=== PATIENT | female | born 1965 | race Caucasian/White ===

== ENCOUNTER → 2021-11-28 10:48 | Outpatient (CLI) | payer BC, SELFPAY ==
--- NOTE | 2021-11-28 | DI.MG.S_ITS ---
BILATERAL DIGITAL SCREENING MAMMOGRAM 3D/2D WITH CAD: 11/28/2021 CLINICAL: Routine screening. Comparison is made to exam dated: 04/29/2018 mammogram - outside facility. The tissue of both breasts is heterogeneously dense. This may lower the sensitivity of mammography. Current study was also evaluated with a Computer Aided Detection (CAD) system. No significant masses, calcifications, or other findings are seen in either breast. There has been no significant interval change. IMPRESSION: NEGATIVE There is no mammographic evidence of malignancy. A 1 year screening mammogram is recommended. Based on the Tyrer Cuzick model (a risk assessment model) the patient's lifetime risk is 13.3% and her 10 year risk is 4.9%. According to the ACR, ACS, and NCCN guidelines, an annual breast MRI exam along with mammogram is recommended if the patient's lifetime risk is 20% or greater. This exam was interpreted at Station ID: [id number]. NOTE: For mammograms, a report in lay terms will be sent to the patient. Approximately 15% of breast malignancies will not be visualized mammographically. In the management of a palpable breast mass, a negative mammogram must not discourage biopsy of a clinically suspicious lesion. Electronically Signed By: Brenda nevarez/belinda:11/28/2021 14:07:23 letter sent: Normal Exam ACR BI-RADS Category 1: Negative [id number]
== END ==
PROVIDERS: PCP Internal Medicine; Referring Provider Internal Medicine; Visit Provider Internal Medicine
DX: Z12.31 Encounter for screening mammogram for malignant neoplasm of breast (principal)
CPT/HCPCS: 77063; 77067

== ENCOUNTER → 2022-01-22 15:33 | Outpatient (CLI) | payer BC, SELFPAY ==
[2022-01-22 16:13] LABS: COVID19 -Nasal RAPID Negative (Negative)
== END ==
PROVIDERS: PCP Internal Medicine; Visit Provider Obstetrics & Gynecology
DX: Z01.812 Encounter for preprocedural laboratory examination (principal); Z20.822 Contact with and (suspected) exposure to COVID-19
CPT/HCPCS: 87635

== ENCOUNTER 2022-01-23 09:56 | Day surgery (SDC) | payer BC, SELFPAY ==
[2022-01-15 14:52] VITALS: BMI 26.1
--- NOTE | 2022-01-23 | PATH_ITS ---
[facility] Accession Number: [id number] . 01 Material submitted: . PART A: endocervix - ENDOCERVICAL CURETTINGS PART B: cervix - CONE BIOPSY CUT @ 1200 . 01 Clinical history: . LEEP . 01 Diagnosis: A. Endocervix, Curettings: Scant benign endocervical tissue. No dysplasia or malignancy. . B. Cervix, Cone: Ectocervical mucosa with focal mild atypia, consistent with low-grade squamous intraepithelial lesion (JYOTI-1/mild dysplasia). No high-grade dysplasia or malignancy identified. Resection margins are clear of dysplasia. [facility] 01/26/2022 1057 Local . 01 Electronically signed: . Jolanta Scanlon MD, Pathologist NPI- [id number] . 01 Gross description: . A. Received in formalin labeled with the patient's name and endocervical curettings consists of multiple odell soft tissue fragments admixed with mucoid material aggregating to 3.0 x 0.5 x 0.1 cm. The specimen is filtered into a biopsy bag and submitted entirely in cassette A1. B. Received in formalin labeled with the patient's name and cone biopsy consists of an oriented fragment of cervix with a cut at 12 o'clock, per the requisition, measuring 1.0 cm from 12 to 6 o'clock, 1.9 cm from 3 to 9 o'clock, and is excised to a depth of 1.0 cm. The partial cervical os is slit-like and measures 0.3 cm in length. The endocervical margin is inked orange with the remaining stromal margins inked blue. The ectocervix is odell, smooth and glistening. The specimen is radially sectioned and submitted entirely as follows: . B1: 12 to 3 o'clock. B2: 3 to 6 o'clock. B3: 6 to 9 o'clock. B4: 9 to 12 o'clock. ([id number]) /MRV 01/26/2022 0119 Local . 01 Pathologist provided ICD-10: R87.612, N88.2, N87.0 . 01 CPT . 129549, 943135 Specimen Comment: A courtesy copy of this report has been sent to [phone] Performed at: 01 [facility] [address] [place] [id number] MD Edmundo Barrios MD Phone: [phone]
[2022-01-23 10:28] VITALS: BP 121/63; PULSE 72; RESP 16; TEMP 37.1; O2SAT 100; BMI 25.0
[2022-01-23] MEDS: LACTATED RINGERS 1,000 ML 42 ML IV (10:54)
--- NOTE | 2022-01-23 13:11 | PM.PREOP ---
Pre-operative Note COVID-19 COVID-19 status: Negative Result date/Date tested (Pos, Neg/Pending): 01/22/22 Criteria for continued procedure: Non-surgical alternatives not available or appropriate per current SOC Interval Note History & Physical reviewed/Exam performed by Physician: Yes Changes to H&P: No
--- NOTE | 2022-01-23 13:30 | SUR.OPER ---
Lithotomy on padded OR bed, head on pillow, arms secured on padded arm boards at <90 degrees abduction. Legs secured in padded yellow fins stirrups.
[2022-01-23 13:50] VITALS: BP 110/83; PULSE 81; RESP 14; TEMP 36; O2SAT 98
[2022-01-23 13:55] VITALS: BP 114/78; PULSE 73; RESP 12; O2SAT 98
--- NOTE | 2022-01-23 13:55 | PM.GYNOP.1 ---
Operative Date/Time/Diagnoses Date of procedure: 01/23/22 Time of procedure: 13:10 Pre-op diagnosis: Low grade cervical dysplasia Cervical stenosis Post-op diagnosis: same Procedure & Clinicians Procedure: Procedures Operation Date: 01/23/22 11:00 Actual Procedure Side Surgeon p LEEP Procedure Octavio Conde MD Indications: Meghan is a 56 year old post-menopausal G0 female who presents today for colposcopy after Pap performed 11/03/2021 showed ASCUS with positive high-risk HPV (non 16/18/45).? Patient's history of abnormal Paps and positive HPV dates back into her 20s when she had cryotherapy performed.? Her most recent colposcopy was in 2019 for LGSIL with positive HPV the biopsies failed to demonstrate LGSIL.? Endocervical sampling is not impossible due to cervical stenosis presumably as results of cryotherapy.? Patient's colposcopy 12/16 2021 was inadequate due to cervical stenosis and options reviewed insofar as further evaluation and/or treatment.? Patient understands that the location and nature of her cytologic abnormalities hasn't been defined with certainty for several years (at least since 2019) and although it would seem unlikely she has occult HGSIL/CIS/cervical carcinoma, endocervical sampling is necessary to be certain.? She agrees and as has been recommended in the past, will proceed to LEEP.? She is scheduled for LEEP in the main OR of [facility] on 01/23/2022 and presents today for her scheduled surgery. Surgeon: Octavio Conde Anesthesia Type: General Operative Notes Findings: Merked cervical stenosis. No ectocervical lesions noted. Atrophic vaginal mucosa. Closure Type: not applicable Specimen(s): other (LEEP cone cut at 12:00 p.m.) Estimated blood loss (mL): 20 Blood products transfused: none Procedure in detail: With the patient under satisfactory general anesthesia in the modified dorsal lithotomy position, the perineum vagina and abdomen were prepped and draped for LEEP procedure. Pre-surgical safety time-out was then taken in accordance with [facility] protocols. An insulated LEEP speculum was then placed in the vagina and the cervix visualized. Vinegar solution was placed in the vagina and the upper vagina/cervix carefully inspected for areas of aceto-white epithelium. Abnormalities noted and entry into the cervical os could not be accomplished due to its profound stenosis. Using a 10 x 15 mm loop electrode with 50 w pure cut, a LEEP cone was performed in the usual manner. Following the cone, ECC was performed with a Gianniian box curette and a separate ECC specimen submitted. Electrocautery was then used to render the cone bed completely hemostatic and once complete hemostasis was assured, the speculum was removed from the vagina and the procedure terminated. Patient was then awakened from anesthesia and transferred to the PACU for a period of observation and recovery. Complications: none Post-operative Condition: stable Disposition: PACU Plan for aftercare: Routine postop care with follow-up appointment in 2 weeks.
[2022-01-23 14:00] VITALS: BP 124/85; PULSE 74; RESP 16; O2SAT 98
[2022-01-23 14:05] VITALS: BP 124/85; PULSE 78; RESP 20; O2SAT 99
[2022-01-23 14:06] VITALS: BP 120/55; PULSE 65; RESP 15; O2SAT 100
--- NOTE | 2022-01-23 15:18 | SUR.PHASEII ---
Late entry: 1430: Pt A&Ox4, denies any distress, no bleeding noted, VSS and ready to discharge home. Discharge instructions reviewed with pt with time allowed for questions. IV DC'd intact, pt has all personal belongings and written instructions in hand. Pt left unit stable via w/c with volunteer assist to ER entrance to meet spouse who will transport pt home.
== END 2022-01-23 14:45 | disposition home or self-care (01) ==
PROVIDERS: PCP Internal Medicine; Referring Provider Obstetrics & Gynecology; Visit Provider Obstetrics & Gynecology
PROC: 0UBC7ZZ Excision of Cervix, Via Natural or Artificial Opening (ICD-10-PCS; CPT 57522; principal; 2022-01-23 11:00)
DX: N87.0 Mild cervical dysplasia (principal); N88.2 Stricture and stenosis of cervix uteri; A63.0 Anogenital (venereal) warts
CPT/HCPCS: 57522; J1100; J2405; J2704; J3010

== ENCOUNTER → 2022-04-28 15:09 | Outpatient (CLI) | payer BC, SELFPAY ==
--- NOTE | 2022-04-28 15:12 | DI.RAD.S_ITS ---
PROCEDURE: XR CERVICAL SPINE 2V OR 3V INDICATIONS: NECK PAIN/MASS TECHNIQUE: 3 view(s) of the cervical spine were acquired. COMPARISON: None. FINDINGS: Bones: No fractures or dislocations to the T1 level. The lateral masses of C1 appear intact on the odontoid view. No suspicious bony lesions. Mild C4-C5 and C5-C6 degenerative disc changes. Mild C6-C7 and C7-T1 facet arthropathy. Mild bilateral C4-C5, C5-C6 and C6-C7 uncovertebral hypertrophy. Soft tissues: No prevertebral soft tissue swelling. IMPRESSION: 1. Multilevel degenerative disc disease. 2. Multilevel facet arthropathy. 3. No fracture. No acute osseous lesion. If symptoms and/or clinical suspicion for pathology persists, evaluation with MRI should be considered for further assessment. Dictated by: Amarilis Wilkinson MD, PhD on 04/28/2022 at 16:14 Approved by: Amarilis Wilkinson MD, PhD on 04/28/2022 at 16:15
== END ==
PROVIDERS: PCP Internal Medicine; Referring Provider Internal Medicine; Visit Provider Internal Medicine
DX: M50.321 Other cervical disc degeneration at C4-C5 level (principal); M47.812 Spondylosis without myelopathy or radiculopathy, cervical region; M47.813 Spondylosis without myelopathy or radiculopathy, cervicothoracic region
CPT/HCPCS: 72040

== ENCOUNTER → 2022-05-20 16:38 | Outpatient (CLI) | payer BC, SELFPAY ==
--- NOTE | 2022-05-20 16:41 | DI.US.S_ITS ---
PROCEDURE: US SOFT TISSUE HEAD AND NECK INDICATIONS: NECK PALPABLE LUMP TECHNIQUE: Real-time scanning was performed of the neck region of interest, with image documentation. COMPARISON: None. FINDINGS: In the deep subcutaneous fat, above the superficial muscular fascia, there is a non- encapsulated, heterogeneous, thin, flat mass measuring 4.5 x 2.8 x 0.7 cm. It is oriented parallel to the skin surface. There may be a tract from this mass to the skin surface, but no defect in the skin could be appreciated. Color Doppler imaging demonstrates no vascularity within or around this area. IMPRESSION: 1. Avascular, subcutaneous mass, probably a lipoma, less likely proteinaceous/sebaceous cyst. No suspicious features. Dictated by: Shira Baker M.D. on 05/21/2022 at 8:14 Approved by: Shira Baker M.D. on 05/21/2022 at 8:25
== END ==
PROVIDERS: PCP Internal Medicine; Referring Provider Internal Medicine; Visit Provider Internal Medicine
DX: R22.1 Localized swelling, mass and lump, neck (principal)
CPT/HCPCS: 76536

== ENCOUNTER → 2022-08-11 11:39 | Outpatient (CLI) | payer OTHER, SELFPAY ==
--- NOTE | 2022-08-11 | DI.CT.S_ITS ---
PROCEDURE: CT ABDOMEN PELVIS W CON INDICATIONS: Left lower quadrant pain TECHNIQUE: After the administration of oral and intravenous contrast, axial sections were acquired from the lung bases to the pubic symphysis. Coronal and sagittal reformats were performed. For radiation dose reduction, the following was used: automated exposure control, adjustment of mA and/or kV according to patient size. COMPARISON:None. FINDINGS: Image quality: Excellent. Lung bases: Unremarkable. Heart: No significant findings. ABDOMEN: Liver: Prominent size. There is a 0.7 cm low-density nodule in the left hepatic lobe, most likely a cyst. Gallbladder: Unremarkable. Biliary ducts: Unremarkable. Pancreas: Unremarkable. Spleen: Normal size. There is a 1.2 cm splenule. Adrenal Glands: Unremarkable. Kidneys and Ureters: Normal size and symmetrical enhancement. There are small nonobstructive stones in both kidneys. Stomach and Bowel: There is thickening of gastric cardia. The small bowel loops and colon are unremarkable. There is a moderate amount of stool in colon. There are few colonic diverticula. No diverticulitis. Peritoneum: No abnormal intraperitoneal fluid. No free air. Ventral Wall: No hernia. Abdominal Nodes: No retroperitoneal or mesenteric adenopathy by size criteria. Vessels: Aorta and inferior vena cava are normal in size. PELVIS: Pelvic Organs: There is a 1.3 cm hypodense nodule in the lower uterine segment or cervix. Bladder: Bladder wall is mildly thickened. Pelvic Nodes: No enlarged lymph nodes. Miscellaneous: No inguinal hernias are seen. Bones: Unremarkable. IMPRESSION: 1. Mild bladder wall thickening suggesting cystitis. 2. Small nonobstructive renal calculi bilaterally. 3. Mild diverticulosis. No acute diverticulitis. 4. There is thickening of the gastric cardia. Recommend upper GI series or upper endoscopy for further evaluation. 5. A 1.3 cm hypodense lesion in the lower uterine segment or cervix. This could represent a nabothian cyst. Pelvic ultrasound is suggested for follow-up. Dictated by: Aubrie Teague M.D. on 08/11/2022 at 17:07 Approved by: Aubrie Teague M.D. on 08/12/2022 at 17:19
== END ==
PROVIDERS: PCP Internal Medicine; Referring Provider Internal Medicine; Visit Provider Internal Medicine
DX: R10.32 Left lower quadrant pain (principal); R63.0 Anorexia; R61 Generalized hyperhidrosis; K76.9 Liver disease, unspecified; N20.0 Calculus of kidney; K57.90 Diverticulosis of intestine, part unspecified, without perforation or abscess without bleeding
CPT/HCPCS: 74177; Q9967

== ENCOUNTER → 2022-08-21 14:06 | Outpatient (CLI) | payer OTHER, SELFPAY ==
--- NOTE | 2022-08-21 | DI.US.S_ITS ---
PROCEDURE: US PELVIC COMPLETE INDICATIONS: Uterine mass TECHNIQUE: Real-time scanning was performed of the pelvic organs, with image documentation. Additional endovaginal scanning was necessary due to incomplete visualization of the adnexal and endometrial structures by transabdominal scanning. COMPARISON: [facility], CT, CT ABDOMEN PELVIS W CON, 08/11/2022, 13:08. FINDINGS: Uterus: Uterus is anteverted and normal in size at 4.9 x 2.2 x 2.8 cm. The myometrium is homogeneous. The endometrium measures 6 mm combined thickness. The endometrial cavity is fluid-filled. No suspicious lesion identified within the uterus. There is a prominent cystic structure within the cervix measuring 1.1 x 0.9 x 1.6 cm. This likely represents a prominent nabothian cyst. No internal vascularity noted. Ovaries: The right ovary measures 1.4 x 0.6 x 1.6 cm. Less than 12 follicles were noted. The left ovary was not visualized on this exam. No adnexal masses are seen. Other: No pathologic free abdominal or pelvic fluid. IMPRESSION: Fluid-filled endometrial cavity. Otherwise, unremarkable sonographic evaluation of the uterus. Prominent 1.6 cm cystic structure within the cervix likely representing a nabothian cyst. Normal sonographic appearance of the right ovary. Left ovary was not visualized on this exam. We strive to produce accurate, complete, and clear reports of imaging services. To assist us in improving patient care, this report was composed using standard report templates and voice recognition software. Therefore, it may contain abnormal punctuation, insertions and/or omissions. Occasional wrong-word or sound-alike substitutions may occur. Though we review the report and make efforts to correct it, we do recommend that the report be read carefully in proper context to recognize any text inaccuracies. Dictated by: Juan Copeland M.D. on 08/21/2022 at 16:31 Approved by: Juan Copeland M.D. on 08/21/2022 at 16:37
== END ==
PROVIDERS: PCP Internal Medicine; Referring Provider Internal Medicine; Visit Provider Internal Medicine
DX: N94.89 Other specified conditions associated with female genital organs and menstrual cycle (principal)
CPT/HCPCS: 76817; 76856

== ENCOUNTER 2022-10-02 13:01 | Day surgery (SDC) | payer OTHER, SELFPAY ==
--- NOTE | 2022-10-02 | PATH_ITS ---
[facility] Accession Number: [id number] No. of containers..05 Tissue . 01 Material submitted: . PART A: colon - PYLORIC BIOPSY PART B: gastrointestinal site - GASTRIC POLYP BIOPSY PART C: esophagus, E-G Junction - GASTROESOPHAGEAL JUNCTION POLYP BIOPSY PART D: esophagus - DISTAL ESOPHAGUS POLYP BIOPSY PART E: splenic flexure - POLYP SPLENIC FLEXURE BIOPSY . 01 Diagnosis: A. Stomach, Pylorus, Biopsy: Gastric antral mucosa with mild chronic inflammation. Negative for Helicobacter organisms by immunohistochemistry. Negative for intestinal metaplasia. Negative for dysplasia or malignancy. . B. Gastric Polyp, Biopsy: Consistent with early fundic gland polyp. No evidence of Helicobacter organisms on H/E stain. Negative for intestinal metaplasia. Negative for dysplasia and malignancy. . C. Gastroesophageal Junction, Biopsy: Squamous mucosa with no diagnostic abnormality. No glandular mucosa present for evaluation. Negative for dysplasia or malignancy. . D. Distal Esophagus, Biopsy: Squamous epithelium with no diagnostic abnormality. Intraepithelial eosinophils are not increased. Negative for dysplasia and malignancy. . E. Splenic Flexure Polyp, Biopsy: Tubular adenoma. [facility] 10/09/2022 1511 Local . 01 Electronically signed: . Joe Felix MD, PhD, Pathologist NPI- [id number] . 01 Gross description: . Part A: PYLORIC BIOPSY: Received in formalin are 2 fragment(s) of odell, soft tissue measuring 0.3 x 0.2 x 0.1 cm to 0.2 x 0.2 x 0.1 cm submitted entirely in 1 cassette(s) Part B: GASTRIC POLYP BIOPSY: Received in formalin is 1 fragment(s) of odell, soft tissue measuring 0.2 x 0.2 x 0.2 cm submitted entirely in 1 cassette(s) Part C: GASTROESOPHAGEAL JUNCTION POLYP BIOPSY: Received in formalin are 2 fragment(s) of odell, soft tissue measuring 0.3 x 0.3 x 0.1 cm to 0.2 x 0.2 x 0.1 cm submitted entirely in 1 cassette(s) Part D: DISTAL ESOPHAGUS POLYP BIOPSY: Received in formalin are 2 fragment(s) of odell, soft tissue measuring 0.2 x 0.2 x 0.1 cm to 0.1 x 0.1 x 0.1 cm submitted entirely in 1 cassette(s) Part E: POLYP SPLENIC FLEXURE BIOPSY: Received in formalin is 1 fragment(s) of odell, soft tissue measuring 0.5 x 0.4 x 0.3 cm submitted entirely in 1 cassette(s) /[facility] 10/06/2022 1543 Local . 01 Microscopic: . A. An immunohistochemical stain was performed to evaluate for Helicobacter organisms and is negative. The control stain showed appropriate reactivity. . * This test was developed and its performance characteristics determined by [employer] (Former[employer]). It has not been cleared or approved by the U.S. Food and Drug Administration. The FDA has determined that such clearance or approval is not necessary. This test is used for clinical purposes. It should not be regarded as investigational or for research. . 01 Pathologist provided ICD-10: K29.70, K31.7, K21.9, D12.3 . 01 CPT . 172290, 585465, 660636, 753961, 718807, V49919 Specimen Comment: A courtesy copy of this report has been sent to [facility] Performed at: 01 [facility] [address] [place] [address] [address], [place], [place] [id number] MD Edmundo Barrios MD Phone: [phone]
--- NOTE | 2022-10-02 13:43 | P.HP_ITS ---
History of Present Illness History of Present Illness Date Patient Seen: 10/02/22 Chief complaint: EGD/Colonoscopy Narrative: Ms. Guajardo states understands that she had a CT scan that showed some thickening of her stomach she was referred to my office and seen on 08/25 2 discuss an EGD.? We discussed risks benefits and alternatives and she did want to proceed. She denies any upper GI symptoms.? Denies reflux or pain in the epigastric region.? Denies Swallowing problems.? No family history of colon cancer or any type of GI cancer stomach included.? Mother did have breast cancer.? She had the CT scan because she was having a low left lower quadrant pain over the course of the last 6 weeks or so and she thought maybe she had some diverticulitis.? She has had a colonoscopy in the past it was about 5 years ago and done in [place]. She was diagnosed with some type of ?colitis? and advised to follow up in 5 years she did have some bleeding per rectum at that time and was prescribed some antibiotics.? She moved to the area about 2 years ago.? She is not had any similar ?colitis type of symptoms but is having this left lower quadrant pain. In the past few weeks that pain has eased up and may be attributable to fiber supplementation but she is not really sure. She is continuing to take the fiber supplement. [facility] Medical History Alopecia Anxiety History of kidney stones Hot flashes Skin cancer Surgical History H/O lithotripsy (~2014) History of eye surgery Social History household members: significant other Smoking Status: Never smoker alcohol intake: current Meds Home Medications and Allergies Home Medications Medication Instructions Recorded Confirmed Type gabapentin 100 mg capsule 100 mg PO BID 12/16/21 10/02/22 History trazodone 50 mg tablet 50 mg PO BEDTIME PRN Sleep 12/16/21 10/02/22 History sertraline 50 mg tablet 50 mg PO DAILY 08/25/22 10/02/22 History Allergies Allergy/AdvReac Type Severity Reaction Status Date / Time hydrocodone [From Vicodin] AdvReac Mild Vomiting Verified 05/05/23 13:53 Sulfa (Sulfonamide AdvReac Mild Verified 10/02/22 13:53 Antibiotics) Exam Narrative Exam Narrative: Exam Const General: cooperative, healthy appearing and comfortable Nutritional Appearance: thin Orientation: alert, awake and oriented x3 HENMT Head: normal to inspection Eyes General: appearance normal, both eyes and all related structures Resp Effort & Inspection: normal respiratory effort and able to speak in complete sentences GI Palpation: soft and non tender Skin General: no rashes or lesions noted Neuro Gait: normal gait Extrem General: normal to inspection Assessment & Plan Assessment and plan (1) Neoplasm of cardia of stomach: Problem details: Possible incidental finding on CT. Not confirmed Status: Ruled-out (2) History of colitis: Status: Acute (3) Left lower quadrant pain: Status: Acute Assessment & Plan narrative: I discussed the risks benefits and alternatives of an EGD.? She understands these including but not limited to perforation of the esophagus or damage to the stomach.? Lack of diagnostic findings or missed diagnosis.? She would like to proceed with an EGD and schedule this.? She also had an ultrasound that did not show the left ovary and so a cyst or some ovarian etiology on the left side maybe contributing to her left lower quadrant pain but additionally I did note on her CT scan that it appears there could be evidence of some diverticula even though they are not inflamed.? I did recommend that she increase her fiber intake to try to ameliorate any diverticular/colon? Etiology for this pain.? Sometimes intermittent constipation and overflow can cause pain like this with the occasional diarrhea constipation that she did describe.? Overall fiber is a very healthy thing to take as a supplement and I think she should definitely benefit from it. She has reflected and because of the colitis she was advised to have colonoscopy in 5 years and it is time for this as well as the current symptoms of pain and constipation are indications for a colonoscopy which she has decided to proceed with. I discussed the risks benefits and alternatives including but not limited to perforation of the colon and an incomplete exam she fully understands these risks and would like to proceed.
[2022-10-02 13:53] VITALS: BP 134/91; PULSE 75; RESP 19; TEMP 36.5; O2SAT 100; BMI 23.3
[2022-10-02] MEDS: LACTATED RINGERS 1,000 ML 42 ML IV (14:01)
[2022-10-02 15:53] VITALS: BP 97/62; PULSE 64; RESP 16; TEMP 36.2; O2SAT 100
[2022-10-02 15:58] VITALS: BP 105/70; PULSE 64; RESP 14; O2SAT 100
[2022-10-02 16:05] VITALS: BP 113/75; PULSE 72; RESP 12; O2SAT 100
[2022-10-02 16:08] VITALS: BP 114/78; PULSE 63; RESP 12; TEMP 36.2; O2SAT 99
--- NOTE | 2022-10-02 18:38 | PM.OP.EC ---
Operative Date/Time/Diagnoses Date of procedure: 10/02/22 Pre-op diagnosis: Esophageal thickening seen on CT. Colon cancer screening as well as left lower quadrant pain, history of colitis and history of bleeding per rectum Procedure & Clinicians Study performed: EGD and colonoscopy, with biopsies Same procedure as scheduled: Yes Indications: See H&P Surgeon: Susie Price Procedure Notes Procedure in detail: Patient was taken to the endoscopy suite and was supine. A time-out was performed. And conscious sedation was induced with the help of an anesthesiologist. A bite block was placed. The EGD scope was introduced into the mouth and advanced easily into the esophagus. The esophagus appeared normal and the scope was advanced into the stomach. There was some irritation of the stomach and some small polyps on the gastric wall. The scope was advanced to the antrum and through the pylorus and into the duodenum. The duodenum appeared normal. Photographs were obtained. The scope was withdrawn and pyloric biopsies were obtained. The antrum and pylorus appeared a little bit red and irritated. The scope was then retroflexed to view the GE junction from the gastric side and everything looked normal. A photograph was obtained. Some gastric biopsies of the gastric mucosa and polyps were obtained. The scope was then withdrawn into the esophagus and biopsies of the GE junction were obtained. Additional biopsies were taken in the distal esophagus based on the CT scan findings but the esophagus grossly looked normal. The scope was then pulled out through the mouth and the patient tolerated the procedure well. The patient was repositioned in a left lateral decubitus position. A digital rectal exam was performed. There were no masses or strictures. The colonoscope was introduced into the anal canal and advanced through to the cecum. The bowel prep was good [place] bowel prep score of 2. A photograph was obtained of the appendiceal orifice. The scope was then slowly withdrawn for total of 14 minutes. One small about 8-9 mm polyp was seen in the splenic flexure and snared. It was removed in total. The scope was further withdrawn and otherwise the examination was unremarkable. The scope was retroflexed and a photograph was obtained. Findings: gastritis and polyp Specimen(s): other (1. Pyloric biopsy 2. Gastric polyp biopsy 3. GE junction biopsy 4. Distal esophagus biopsy 5. Splenic flexure polyp) Complications: none Post-procedure Plan for aftercare: Follow up colonoscopy will be between 7 and 10 years based on the pathology results.
== END 2022-10-02 17:07 | disposition home or self-care (01) ==
PROVIDERS: PCP Internal Medicine; Referring Provider Surgery; Visit Provider Surgery
PROC: 0DJ08ZZ Inspection of Upper Intestinal Tract, Via Natural or Artificial Opening Endoscopic (ICD-10-PCS; CPT 43235; principal; 2022-10-02 13:45)
PROC: 0DJD8ZZ Inspection of Lower Intestinal Tract, Via Natural or Artificial Opening Endoscopic (ICD-10-PCS; CPT 45378; 2022-10-02 13:45)
DX: R93.3 Abnormal findings on diagnostic imaging of other parts of digestive tract (principal); Z87.19 Personal history of other diseases of the digestive system; R10.32 Left lower quadrant pain; K29.50 Unspecified chronic gastritis without bleeding; K31.7 Polyp of stomach and duodenum; D12.3 Benign neoplasm of transverse colon
CPT/HCPCS: 45385; 43239; J2250; J2704; J3010

== ENCOUNTER → 2023-02-25 14:51 | Outpatient (CLI) | payer OTHER, SELFPAY ==
--- NOTE | 2023-02-25 | DI.MG.S_ITS ---
BILATERAL DIGITAL SCREENING MAMMOGRAM 3D/2D WITH CAD: 02/25/2023 CLINICAL: Routine screening. Family history of breast cancer. Comparison is made to exams dated: 11/28/2021 mammogram - [facility] and 04/29/2018 mammogram - outside facility. Both breasts are heterogeneously dense, which may obscure small masses (category c / 51-75% glandular tissue). Current study was also evaluated with a Computer Aided Detection (CAD) system. No significant masses, calcifications, or other findings are seen in either breast. There has been no significant interval change. IMPRESSION: NEGATIVE There is no mammographic evidence of malignancy. A 1 year screening mammogram is recommended. Based on the Tyrer Cuzick model (a risk assessment model) the patient's lifetime risk is 13.0% and her 10 year risk is 5.1%. According to the ACR, ACS, and NCCN guidelines, an annual breast MRI exam along with mammogram is recommended if the patient's lifetime risk is 20% or greater. This exam was interpreted at Station ID: [id number]. NOTE: For mammograms, a report in lay terms will be sent to the patient. Approximately 15% of breast malignancies will not be visualized mammographically. In the management of a palpable breast mass, a negative mammogram must not discourage biopsy of a clinically suspicious lesion. Electronically Signed By: Lior ospina/belinda:02/25/2023 16:37:16 letter sent: Normal Exam ACR BI-RADS Category 1: Negative [id number]
== END ==
PROVIDERS: PCP Internal Medicine; Referring Provider Internal Medicine; Visit Provider Internal Medicine
DX: Z12.31 Encounter for screening mammogram for malignant neoplasm of breast (principal); Z80.3 Family history of malignant neoplasm of breast
CPT/HCPCS: 77063; 77067

== ENCOUNTER → 2024-04-06 17:17 | Outpatient (CLI) | payer OTHER, SELFPAY ==
--- NOTE | 2024-04-06 17:18 | DI.MG.S_ITS ---
BILATERAL DIGITAL SCREENING MAMMOGRAM 3D/2D WITH CAD: 04/06/2024 CLINICAL: Routine screening. Family history of breast cancer. Comparison is made to exams dated: 02/25/2023 mammogram, 11/28/2021 mammogram - [facility], and 04/29/2018 mammogram - outside facility. The breasts are heterogeneously dense, which may obscure small masses (category c / 51-75% glandular tissue). Current study was also evaluated with a Computer Aided Detection (CAD) system. No significant masses, calcifications, or other findings are seen in either breast. There has been no significant interval change. IMPRESSION: NEGATIVE There is no mammographic evidence of malignancy. A 1 year screening mammogram is recommended. Based on the Tyrer Cuzick model (a risk assessment model) the patient's lifetime risk is 12.8% and her 10 year risk is 5.2%. According to the ACR, ACS, and NCCN guidelines, an annual breast MRI exam along with mammogram is recommended if the patient's lifetime risk is 20% or greater. This exam was interpreted at Station ID: [id number]. NOTE: For mammograms, a report in lay terms will be sent to the patient. Approximately 15% of breast malignancies will not be visualized mammographically. In the management of a palpable breast mass, a negative mammogram must not discourage biopsy of a clinically suspicious lesion. Electronically Signed By: Juan goodwin/belinda:04/07/2024 23:54:08 letter sent: Normal Exam ACR BI-RADS Category 1: Negative
== END ==
PROVIDERS: PCP Internal Medicine; Referring Provider Internal Medicine; Visit Provider Internal Medicine
DX: Z12.31 Encounter for screening mammogram for malignant neoplasm of breast (principal); Z80.3 Family history of malignant neoplasm of breast; R92.333 Mammographic heterogeneous density, bilateral breasts
CPT/HCPCS: 77063; 77067

== ENCOUNTER 2024-11-09 07:20 | Observation (INO) | payer OTHER, SELFPAY ==
[2024-11-09] VITALS (13 sets, daily range): BP systolic 109–145; BP diastolic 61–97; PULSE 60–93; RESP 16; TEMP 36.1–37.2; O2SAT 92–100; BMI 25.0
--- NOTE | 2024-11-09 | PATH_ITS ---
[facility] Accession Number: [id number] No. of containers..01 Tissue . 01 Material submitted: . appendix - APPENDIX . 01 Diagnosis: APPENDIX, APPENDECTOMY: Acute suppurative appendicitis and acute serositis. Negative for malignancy. [facility] 11/15/2024 1110 Local . 01 Electronically signed: . Sincere Velasquez MD, Pathologist NPI- [id number] . 01 Gross description: . Received in formalin with two identifiers and appendix, is a odell vermiform appendix 6.4 cm in length by 1.0 cm in diameter with odell, roughened serosa with adherent material consistent with exudate. The margin is inked blue. The lumen is patent and averages 0.3 cm in diameter filled with odell presumed purulent material. The villanueva average 0.2 cm thick with no perforations or lesions identified. Chalk Cutter sections to include the margin, entirely bisected distal tip, and cross-section are submitted in cassette A1. ([id number]) /[facility] 11/10/2024 1923 Local . 01 Pathologist provided ICD-10: K35.80 . 01 CPT . 312726 Specimen Comment: A courtesy copy of this report has been sent to [facility] Pathology Performed at: [address] [facility], [place], [place] [id number] MD Edmundo Barrios MD Phone: [phone]
--- NOTE | 2024-11-09 07:54 | EKG_ITS ---
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
--- NOTE | 2024-11-09 07:59 | ED_ITS ---
HPI - Abdominal Pain General Chief Complaint: Abdominal Pain Stated Complaint: Stomach pain Lower right side Time Seen by Provider: 11/09/24 07:59 Source: patient, RN notes reviewed and old records reviewed Mode of arrival: Family Vehicle Limitations: no limitations History of Present Illness HPI narrative: 59-year-old female history of anxiety, colitis, kidney stones, HPV who presents with complaint of right lower quadrant pain. Patient states started at 2:30 a.m. yesterday morning over 24 hours ago. Woke her up from sleep. Patient states bilateral lower abdomen but it was started to localize more to the right lower quadrant. She denies fevers. She was has a little bit chilled here in the emergency department. Denies nausea or vomiting. States it was has a little bit of flank pain on the right. States had diarrhea the 1st night but has not had any since. She denies any black or bloody stools. Denies any dysuria urgency or frequency or hematuria. Has had kidney stones before states this feels differently she was also had colitis in the past which he states also felt differently. States she did have a Pap smear on 09/28/2024 for HPV. States daily medications or gabapentin, sertraline, trazodone and estrogen patch and cream. States had prior hysterectomy min excisions for skin cancer. Patient has a allergic to sulfa and Vicodin makes her vomit. No tobacco, 2 alcoholic drinks daily, no recreational drugs. She sees José Luis Sharma as her PCP. Related Data Home Medications ?Medication ?Instructions ?Recorded ?Confirmed gabapentin 100 mg capsule 100 mg PO BID 12/16/2110/02 trazodone 50 mg tablet 50 mg PO BEDTIME PRN Sleep 0 12/16/21 10/02/22 sertraline 50 mg tablet 50 mg PO DAILY 08/25/22 05/10/20 Allergies Allergy/AdvReac Type Severity Reaction Status Date / Time hydrocodone (From Vicodin) AdvReac Mild Vomiting Verified 10/02/22 13:53 Sulfa (Sulfonamide AdvReac Mild Verified 10/02/22 13:53 Antibiotics) Review of Systems Review of Systems ROS Unobtainable: All systems reviewed & are unremarkable except as noted in HPI and below Patient History Medical History Anxiety Alopecia Hot flashes Skin cancer History of kidney stones Surgical History History of eye surgery H/O lithotripsy (~2014) Social History household members: significant other alcohol intake: current alcohol intake frequency: a few times a week Exam Narrative Exam Narrative: GENERAL: Alert and oriented x three, female in moderate distress. HEENT: Head normocephalic, atraumatic, EOMI, pupils reactive, face symmetric, moist mucous membranes NECK: Supple, full range of motion CARDIOVASCULAR: Regular rate and rhythm without murmurs, rubs or gallops. RESPIRATORY: Breath sounds equal bilaterally, no wheezes rales or rhonchi. ABDOMEN: Soft, patient has a right lower quadrant tenderness. Normoactive bowel sounds all 4 quadrants. No guarding or rebound, rigidity, no mass, no rash or skin changes noted. : No CVA tenderness EXTREMITIES: Normal range of motion, no clubbing or edema. Neurovascularly intact NEUROLOGICAL: Cranial nerves II through XII grossly intact. Moving all extremities SKIN: Warm, dry, no petechiae, no rashes or lesions. Initial Vital Signs Initial Vital Signs: Vital Signs Pulse Rate 93 H 11/09/24 07:36 Respiratory Rate 16 11/09/24 07:36 Blood Pressure 145/97 H 11/09/24 07:36 Pulse Oximetry 97 11/09/24 07:36 Oxygen Delivery Method Room Air 11/09/24 07:36 Course Orders Ordered: ED Orders 11/09/24 07:46 Complete Blood Count AUTO DIFF Stat Comprehensive Metabolic Panel Stat Lipase Stat 11/09/24 07:51 EKG-12 Lead Stat 11/09/24 08:16 CT abdomen pelvis w con Stat Sodium Chloride (Normal Saline 0.9%) 1,000 mls @ 1,000 mls/hr IV BOLUS ONE Stop: 11/09/24 10:26 Last Admin: 11/09/24 09:48 Dose: 1,000 mls/hr Documented By: VALE Cefazolin Sodium/Dextrose (Ancef) 100 mls @ 200 mls/hr IV NOW ONE Stop: 11/09/24 10:34 Ondansetron HCl (Ondansetron 4 Mg/2 Ml Inj) 4 mg IV NOW PRN PRN Reason: Nausea And Vomiting Discontinued Medications Piperacillin Sod/Tazobactam (Sod 4.5 gm/ Sodium Chloride) 100 mls @ 200 mls/hr IV NOW ONE Stop: 11/09/24 09:28 Last Admin: 11/09/24 09:48 Dose: 200 mls/hr Documented By: LM Ketorolac Tromethamine (Ketorolac 30 Mg/Ml Vial) 15 mg IV NOW ONE Stop: 11/09/24 08:17 Last Admin: 11/09/24 08:23 Dose: 15 mg Documented By: LM Ondansetron HCl (Ondansetron 4 Mg Odt) 4 mg PO NOW PRN PRN Reason: Nausea And Vomiting Vital Signs Vital signs: Vital Signs - 8 hr 11/09/24 07:36 11/09/24 07:46 11/09/24 07:46 Temperature Pulse Rate 93 H 78 Respiratory Rate 16 Blood Pressure 145/97 H 143/79 H Pulse Oximetry 97 100 Oxygen Delivery Method Room Air 11/09/24 08:56 Temperature 98.1 F Pulse Rate Respiratory Rate Blood Pressure Pulse Oximetry Oxygen Delivery Method MDM - Abdominal Pain Lab Data 11/09/24 07:46 11/09/24 07:46 Labs: Lab Results 11/09/24 Range/Units 07:46 WBC 8.6 (4.5-11.0) X10^3/uL RBC 4.46 (4.0-5.2) X10^6/uL Hgb 13.5 (12.0-16.0) g/dL Hct 39.9 (36-46) % MCV 89.5 (80-100) fL MCH 30.2 (26-34) PG MCHC 33.7 (30-36) % RDW 14.7 (11.6-14.8) % Plt Count 207 (150-400) X10^3/uL Neut % (Auto) 72.2 (50-75) % Lymph % (Auto) 17.1 L (25-40) % [place] % (Auto) 9.7 (3-14) % Eos % (Auto) 0.6 L (2-4) % Baso % (Auto) 0.4 (0-2) % Neut # (Auto) 6200 (0870-5112) /uL Lymph # (Auto) 1500 (4923-2150) /uL [place] # (Auto) 800 (0-900) /uL Eos # (Auto) 100 (0-450) /uL Baso # (Auto) 0 (0-100) /uL Sodium 136 L (137-145) mmol/L Potassium 4.0 (3.4-5.1) mmol/L Chloride 104 (98-107) mmol/L Carbon Dioxide 24 (22-32) mmol/L BUN 15 (7-17) mg/dL Creatinine 0.75 (0.52-1.04) mg/dL Estimated GFR > 60 (>60) mL/min BUN/Creatinine Ratio 20.0 (6-22) Glucose 114 H (70-99) mg/dL Calcium 9.5 (8.4-10.2) mg/dL Total Bilirubin 1.7 H (0.2-1.3) mg/dL AST 30 (14-36) IU/L ALT 16 (<35) IU/L Alkaline Phosphatase 53 (38-126) U/L Total Protein 7.4 (6.3-8.2) g/dL Albumin 4.6 (3.5-5.0) g/dL Globulin 2.8 (1.7-4.1) g/dL Albumin/Globulin Ratio 1.6 (1.0-2.8) Lipase 140 (23-300) U/L Point of care testing: Urine Dip Bedside Urine Glucose Negative Bedside Urine Bilirubin - Negative Bedside Urine Ketone - Negative Urine Specific [place] 1.010 Bedside Urine Occult Blood - Negative Bedside Urine pH 8.0 Bedside Urine Protein - Negative Bedside Urine Urobilinogen - Negative Bedside Urine Nitrite - Negative Bedside Urine Leukocytes - Negative Esterase ECG Data Attestation: I personally reviewed and interpreted this ECG as follows: Prior ECG tracings: not available for review Interpretation: Sinus rhythm, rate of 77 ND 156 QRS of 74 QTC of 414. No acute ST elevation or depression noted. No priors for comparison. MDM Narrative Medical decision making narrative: Labs white count, hemoglobin and platelets are normal, sodium is 136, electrolytes BUN and creatinine are normal, glucose is 114 bilirubin is 1.7, AST ALT alk-phos and lipase are normal. Point of care urine is negative. EKG shows sinus rhythm no acute change. CT abdomen pelvis shows findings consistent with a acute appendicitis. No signs of perforation. No discrete drainable abscess collection noted at this time. No bowel obstruction no other areas of normal bowel wall thickening. No free fluid or free air. No obstructing renal stones or hydronephrosis. Bilateral nonobstructing stones. Mild diffuse bladder wall thickening, low-grade cystitis can not be excluded. Clinical correlation follow up recommended. Other incidental findings from not significantly changed from prior study. 59-year-old female history of kidney stones and colitis but states feels very different she was reproducible right lower quadrant pain on exam. Labs show a bilirubin of 1.7 but she was nontender in the right upper quadrant, AST ALT and lipase are normal range. CT abdomen pelvis consistent with a appendicitis as it was patient's exam. Possible cystitis on imaging but patient is urine is negative. Patient has not had urinary symptoms. Patient started any IV antibiotics. Spoke with the patient she defers anything additional for pain at this time. Last intake of water was at 5:30 a.m. this morning, states last solids was around 7 or 8:00 a.m. last night. Spoke with Dr. Franco, general surgery. He was in the department and saw the patient shortly thereafter. Accepted with plan for same-day surgery likely discharge home afterwards. Discharge Plan Departure Patient Disposition: Admitted as Observation Clinical Impression: Acute appendicitis Admit Date/Time: 11/09/24 10:00 Admit Provider: Jefe Franco
--- NOTE | 2024-11-09 07:59 | PC.NURSE ---
Pt sitting up on stretcher, RA, A&Ox4, breathing even/equal/unlabored at this time. Pt states pain is to RLQ with radition to the back. Labs and urine collected, pt updated. Call light within reach.
[2024-11-09 08:02] LABS: Add Manual Diff / Slide Review NO; Basophils Absolute Auto 0 /uL (0-100); Basophils Percent Auto 0.4 % (0-2); Eosinophils Absolute Auto 100 /uL (0-450); Eosinophils Percent Auto 0.6 % (2-4); Hematocrit 39.9 % (36-46); Hemoglobin 13.5 g/dL (12.0-16.0); Lymphocytes Absolute Auto 1500 /uL (1100-4500); Lymphocytes Percent Auto 17.1 % (25-40); Mean Corpuscular HGB Conc 33.7 % (30-36); Mean Corpuscular Hemoglobin 30.2 PG (26-34); Mean Corpuscular Volume 89.5 fL (80-100); Monocytes Absolute Auto 800 /uL (0-900); Monocytes Percent Auto 9.7 % (3-14); Neutrophils Absolute Auto 6200 /uL (1500-7000); Neutrophils Percent Auto 72.2 % (50-75); Platelet Count 207 X10^3/uL (150-400); Red Blood Cell Count 4.46 X10^6/uL (4.0-5.2); Red Cell Distribution Width 14.7 % (11.6-14.8); White Blood Cell Count 8.6 X10^3/uL (4.5-11.0)
[2024-11-09 08:14] LABS: Alanine Aminotransferase 16 IU/L (<35); Albumin 4.6 g/dL (3.5-5.0); Albumin Globulin Ratio 1.6 (1.0-2.8); Alkaline Phosphatase 53 U/L (38-126); Aspartate Aminotransferase 30 IU/L (14-36); Bilirubin Total 1.7 mg/dL (0.2-1.3); Blood Urea Nitrogen 15 mg/dL (7-17); Calcium 9.5 mg/dL (8.4-10.2); Carbon Dioxide 24 mmol/L (22-32); Chloride 104 mmol/L (98-107); Estimated Glomerular Filt Rate > 60 mL/min (>60); Globulin 2.8 g/dL (1.7-4.1); Glucose 114 mg/dL (70-99); HEMOLYSIS 24 (0-50); Lipase 140 U/L (23-300); Sodium 136 mmol/L (137-145); Total Protein 7.4 g/dL (6.3-8.2)
--- NOTE | 2024-11-09 08:16 | DI.CT.S_ITS ---
PROCEDURE: CT ABDOMEN PELVIS W CON INDICATIONS: RLQ pain, mild flank x 24 hours, pain w/ palp RLQ TECHNIQUE: After the administration of intravenous contrast, axial sections acquired from the lung bases to the pubic symphysis. Coronal and sagittal reformats were performed. For radiation dose reduction, the following was used: automated exposure control, adjustment of mA and/or kV according to patient size. COMPARISON: [facility], CT, CT ABDOMEN PELVIS W CON, 08/11/2022, 13:08. FINDINGS: Image quality: Diagnostic. Lower Chest: No significant findings. ABDOMEN: Liver: No solid mass. 8 mm hypodensity in left hepatic lobe series 2, image 17. 5 mm hypodensity is also seen in left hepatic lobe series 2, image 14. Gallbladder: No gallbladder wall thickening or radiopaque gallstones. Biliary ducts: No biliary dilation. Pancreas: No ductal dilation. Spleen: Size is within normal limits. Adrenal Glands: No adrenal nodules. Mild left adrenal thickening. Kidneys and Ureters: Bilateral nonobstructing renal stones are seen measures up to 8 x 4 mm in size in midpole left kidney. No hydronephrosis. No solid mass. No complex renal cystic lesion which requires follow up. Stomach and Bowel: There is no bowel obstruction. Appendix is seen in right lower quadrant and is diffusely enlarged . Extensive periappendiceal fat stranding and fluid is seen. Tiny calcification is also noted within appendiceal lumen. No extra luminal air. No discrete drainable abscess collection. No other area of abnormal bowel wall thickening. Peritoneum: No abnormal intraperitoneal fluid. No free air. Ventral Wall: No significant ventral hernia. Abdominal Nodes: No retroperitoneal or mesenteric adenopathy by size criteria. Vessels: Aorta and inferior vena cava are normal in size. PELVIS: Pelvic Organs: Unremarkable. Bladder: Mild diffuse bladder wall thickening is seen. Pelvic Nodes: No enlarged lymph nodes. Miscellaneous: No inguinal hernias are seen. Bones: No aggressive osseous abnormality. IMPRESSION: 1. Finding is consistent with acute appendicitis. No signs of perforation. No discrete drainable abscess collection is noted at this time. 2. No bowel obstruction. No other area of abnormal bowel wall thickening. No free fluid or free air. 3. No obstructing renal stones or hydronephrosis. Bilateral nonobstructing stones. Mild diffuse bladder wall thickening, low-grade cystitis cannot be excluded. Clinical correlation and follow-up is recommended. 4. Other incidental findings as above not significantly changed from prior study. Dictated by: Vinny Winkler M.D. on 11/09/2024 at 9:14 Approved by: Vinny Winkler M.D. on 11/09/2024 at 9:19
[2024-11-09] MEDS: KETOROLAC 30 MG/ML VIAL 15 MG IV (08:23)
[2024-11-09] MEDS: SODIUM CHLORIDE 0.9% 1,000 ML 1000 ML IV (09:48)
[2024-11-09] MEDS: PIPERACILLIN/TAZO 4.5 GM in SODIUM CHLORIDE 0.9% 100 ML IV (09:48)
--- NOTE | 2024-11-09 10:01 | P.CONS_ITS ---
History of Present Illness Consult details Date Patient Seen: 11/09/24 Time Patient Seen: 09:30 Chief complaint: Stomach pain Lower right side Narrative: 59-year-old otherwise healthy female with a history of hysterectomy who presented to the ED with a 1 day history of abdominal pain which localized to her right lower quadrant. She had a mild leukocytosis and CT abdomen pelvis demonstrated an edematous appendix with periappendiceal inflammatory changes consistent with acute appendicitis. She is admitted for definitive management. Meds Home Medications and Allergies Home Medications ?Medication ?Instructions ?Recorded ?Confirmed ?Type gabapentin 100 mg capsule 100 mg PO BID 12/16/2110/02 History trazodone 50 mg tablet 50 mg PO BEDTIME PRN Sleep 0 12/16/21 10/02/22 History sertraline 50 mg tablet 50 mg PO DAILY 08/25/22 0510/20 History Allergies Allergy/AdvReac Type Severity Reaction Status Date / Time hydrocodone (From Vicodin) AdvReac Mild Vomiting Verified 10/02/22 13:53 Sulfa (Sulfonamide AdvReac Mild Verified 10/02/22 13:53 Antibiotics) Review of Systems Review of Systems Narrative: Comprehensive review of systems negative to direct questioning with the exception of the previously mentioned chronic conditions Exam Vital Signs (past 8 hours): - 11/09/24 07:36 11/09/24 07:46 11/09/24 07:46 Temperature Pulse Rate 93 H 78 Respiratory Rate 16 Blood Pressure 145/97 H 143/79 H Pulse Oximetry 97 100 Oxygen Delivery Method Room Air 11/09/24 08:56 Temperature 98.1 F Pulse Rate Respiratory Rate Blood Pressure Pulse Oximetry Oxygen Delivery Method Oxygen Delivery Method Room Air Narrative Exam Narrative: Head is normocephalic and atraumatic. Neck is supple. Back is without CVA or spinous process tenderness. Lungs are clear to auscultation. Chest is symmetric, nontender with normal inspiratory and expiratory excursion. Heart has a regular rate and rhythm with no murmur or gallop. Abdomen is soft with McBurney's tenderness and mild voluntary guarding. There is no Rovsing sign. Bowel sounds are present. Neurological exam is nonfocal. Extremities manifests full range of motion. Objective Labs 11/09/24 07:46 11/09/24 07:46 Labs: Laboratory Results - last 24 hr 11/09/24 07:46 WBC 8.6 RBC 4.46 Hgb 13.5 Hct 39.9 MCV 89.5 MCH 30.2 MCHC 33.7 RDW 14.7 Plt Count 207 Neut % (Auto) 72.2 Lymph % (Auto) 17.1 L [place] % (Auto) 9.7 Eos % (Auto) 0.6 L Baso % (Auto) 0.4 Neut # (Auto) 6200 Lymph # (Auto) 1500 [place] # (Auto) 800 Eos # (Auto) 100 Baso # (Auto) 0 Sodium 136 L Potassium 4.0 Chloride 104 Carbon Dioxide 24 BUN 15 Creatinine 0.75 Estimated GFR > 60 BUN/Creatinine Ratio 20.0 Glucose 114 H Calcium 9.5 Total Bilirubin 1.7 H AST 30 ALT 16 Alkaline Phosphatase 53 Total Protein 7.4 Albumin 4.6 Globulin 2.8 Albumin/Globulin Ratio 1.6 Lipase 140 PFSH Medical History Anxiety Alopecia Hot flashes Skin cancer History of kidney stones Surgical History History of eye surgery H/O lithotripsy (~2014) Social History household members: significant other Tobacco & Substance Use alcohol intake: current Assessment & Plan Assessment and plan (1) Acute appendicitis: Status: Acute Plan I have recommended a laparoscopic attempt at appendectomy. Alternatives, risks and benefits were discussed in detail. Questions were answered. The patient desires to proceed as I have outlined. Plan: Laparoscopic appendectomy. Time-Based Coding :: [TOTAL MINUTES] spent with patient and on the chart (including review of chart, obtaining history, exam, reviewing outside data, placing orders, documenting exam and treatment plan, and counseling patient) on [DATE]. PROFEE Charge Codes Inpatient or Observation consultation: [id number]
[2024-11-09] MEDS: LACTATED RINGERS 1,000 ML 42 ML IV ×3 (10:52→15:23)
[2024-11-09] MEDS: CEFAZOLIN 2 GM/100 ML PREMIX 100 ML IV ×2 (10:53→14:40)
[2024-11-09] MEDS: ONDANSETRON 4 MG/2 ML INJ IV (11:35)
[2024-11-09] MEDS: HYDROMORPHONE 1 MG INJ IV (12:07)
[2024-11-09] MEDS: ACETAMINOPHEN IV 1,000 MG/100 ML VIAL 400 MG IV (14:47)
--- NOTE | 2024-11-09 14:54 | SUR.OPER ---
Supine on padded OR bed, head on pillow, left arm padded and tucked, right arm secured on padded arm boards at <90 degrees abduction, legs uncrossed, safety belt at thigh, tape over blanket over lower legs.
[2024-11-09] MEDS: BUPIVACAINE 0.5% (PF) 30 ML VIAL INJ (15:04)
[2024-11-09] MEDS: LACTATED RINGERS 1,000 ML 125 ML IV (17:12)
--- NOTE | 2024-11-10 10:44 | P.OP_ITS ---
Operative Date/Time/Diagnoses Date of procedure: 11/09/24 Time of procedure: 14:45 Pre-op diagnosis: Acute appendicitis Post-op diagnosis: same Procedure & Clinicians Procedure: Laparoscopic appendectomy Same procedure as scheduled: Yes Indications: Acute appendicitis Surgeon: Jefe Franco Click Yes if Unassisted: Yes Anesthesia Type: General Operative Notes Findings: Acute appendicitis Closure Type: primary Specimen(s): other (Vermiform appendix) Applied: none Estimated Blood Loss (mL): 5 Blood products transfused: none Procedure in detail: Procedure in detail: After obtaining informed consent properly identifying the patient the patient was transported to the operating room and was placed on the table in the the anesthesia was in the lumen was then draped in the usual sterile manner. A time- out. Curvilinear infraumbilical incision of 2 cm length was made with a 15 blade and was carried with electrocautery down onto the fascia. Traction sutures of 0 Vicryl were placed on either side of midline and a peritoneotomy was made under direct vision between the traction sutures. A Henderson cannula of 12 mm diameter was passed and was secured by inflating the balloon at its tip. Pneumoperitoneum was instilled. A 5 mm 30 degree angled laparoscope was passed and posterior surface of the infraumbilical abdominal wall was visualized. 2 additional 5 mm ports were placed under direct laparoscopic vision, 1 in the suprapubic midline and the other midway between the 1st 5 and the umbilicus 2 fingerbreadths left of midline. The appendix was visualized. It was acutely inflamed and moderately edematous. The mesoappendix was taken using LigaSure and this dissection was carried down to the confluence of the appendiceal base and cecal wall. The 5 mm 30 degree angled scope was withdrawn from the Henderson and passed through the left lower quadrant port. An echelon was passed through the Henderson and applied across the confluence of the appendiceal base and cecal wall. It was closed and fired. The echelon was released and withdrawn from the peritoneal cavity. An Endo-Catch was passed through the Henedrson and the specimen was bagged under direct laparoscopic vision. The Henderson balloon was deflated and the Henderson, Endo-Catch and specimen were withdrawn from the supraumbilical port site as a unit. Specimen was passed from the field in the Henderson and 5 mm 30 degree scope were restored to their original positions. The operative field was inspected and hemostasis was perfect. A laparoscopic equipment was withdrawn under direct laparoscopic vision. Pneumoperitoneum was evacuated and ports were withdrawn. The supraumbilical fascial defect was closed with a running 0 Prolene stitch. Field blocks path% Marcaine were instilled into the wounds which were then closed with inverted deep dermal simple interrupted 3-0 Vicryl sutures. They were further secured with Dermabond. The patient tolerated the procedure well and was transported to PACU. Complications: none Post-operative Condition: stable Disposition: PACU Plan for aftercare: Discharge to home
== END 2024-11-09 21:16 | disposition home or self-care (01) ==
LOC: ED 07:59 → AC 10:01
PROVIDERS: Admitting Provider Surgery; Emergency Provider Emergency Medicine; PCP Internal Medicine; Referring Provider Emergency Medicine; Visit Provider Surgery
PROC: 0DTJ4ZZ Resection of Appendix, Percutaneous Endoscopic Approach (ICD-10-PCS; CPT 44970; principal; 2024-11-09 14:00)
DX: K35.80 Unspecified acute appendicitis (principal); Z88.2 Allergy status to sulfonamides; Z88.6 Allergy status to analgesic agent
CPT/HCPCS: 44970; 74177; 80053; 81003; 83690; 85025; 93005; 96361; 96365; 96367; 96375; 99222; 99284; G0378; J0131; J0690; J1100; J1171; J1885; J2405; J2543; J2704; J3010; Q9967

== ENCOUNTER → 2025-05-03 08:30 | Outpatient (CLI) | payer OTHER, SELFPAY ==
[2024-11-09 10:33] VITALS: BMI 25.0
--- NOTE | 2025-05-03 08:31 | DI.CT.S_ITS ---
PROCEDURE: CT ABDOMEN PELVIS W CON INDICATIONS: Lower abdominal/pelvic pain for 4 weeks, prior history of colitis and appendectomy, and hysterectomy. TECHNIQUE: After the administration of intravenous contrast, axial sections acquired from the lung bases to the pubic symphysis. Coronal and sagittal reformats were performed. For radiation dose reduction, the following was used: automated exposure control, adjustment of mA and/or kV according to patient size. COMPARISON: [facility], CT, CT ABDOMEN PELVIS W CON, 11/09/2024, 8:26. [facility], CT, CT ABDOMEN PELVIS W CON, 08/11/2022, 13:08. FINDINGS: Image quality: Diagnostic. Lower Chest: No significant findings. ABDOMEN: Liver: No solid mass. Gallbladder: No radiopaque gallstones or wall thickening. The gallbladder appears relatively contracted. Biliary ducts: No biliary dilation. Pancreas: No ductal dilation. Spleen: Size is within normal limits. Adrenal Glands: No adrenal nodules. Kidneys and Ureters: No hydronephrosis. No solid mass. No complex renal cystic lesion which requires follow up. There is a nonobstructive 5 mm lower 3rd collecting system calculus measuring 1232 Hounsfield units. Stomach and Bowel: Normal colonic caliber, without significant wall thickening. Peritoneum: No abnormal intraperitoneal fluid. No free air. Ventral Wall: No significant ventral hernia. Abdominal Nodes: No retroperitoneal or mesenteric adenopathy by size criteria. Vessels: Aorta and inferior vena cava are normal in size. PELVIS: Pelvic Organs: Prior hysterectomy. Bladder: No bladder wall thickening, accounting for underdistention. Pelvic Nodes: No enlarged lymph nodes. Miscellaneous: No inguinal hernias are seen. Prior appendectomy. Bones: No aggressive osseous abnormality. IMPRESSION: No definite acute disease. Relatively contracted gallbladder. 5 mm high density nonobstructive lower 3rd right renal calculus without adjacent evidence of renal cortical inflammation. Prior appendectomy and hysterectomy. Dictated by: Jose Torres M.D. on 05/03/2025 at 11:51 Approved by: Jose Torres M.D. on 05/03/2025 at 11:58
== END ==
LOC: CT 08:30
PROVIDERS: PCP Registered Nurse; Referring Provider Registered Nurse; Visit Provider Registered Nurse
DX: N20.0 Calculus of kidney (principal); R10.30 Lower abdominal pain, unspecified; Z90.710 Acquired absence of both cervix and uterus
CPT/HCPCS: 74177; Q9967